=== PATIENT | female | born 1990 | race Two or more races ===

== ENCOUNTER 2019-04-04 21:39 | Emergency (ER) | payer OTHER ==
[~2019-04-04] VITALS: Ht 162.6 cm; Wt 52.2 kg
== END 2019-04-05 01:42 | disposition home or self-care (01) ==
LOC: ER 21:39
DX: R00.2 Palpitations (principal); F06.4 Anxiety disorder due to known physiological condition

== ENCOUNTER 2024-05-14 09:44 | Outpatient (CLI) | payer OTHER ==
[2024-05-14 10:27] LABS: HEMATOCRIT 37.1 % (36.0-45.00); HEMOGLOBIN 12.6 g/dL (12.0-15.00); MEAN CELL VOLUME 89.4 fL (80.00-100.00); MEAN CORPUSCULAR HEMOGLOBIN 30.5 pg (27.00-32.0); MEAN CORPUSCULAR HGB CONC 34.1 g/dl (32.0-36.0); PLATELET COUNT 280 K/uL (150-450); RED BLOOD COUNT 4.15 M/uL (4.00-6.00); RED CELL DISTRIBUTION WIDTH 12.2 % (11.5-14.5)
[2024-05-14 10:51] LABS: URINE APPEARANCE Clear; URINE BILIRRUBIN Negative (NEGATIVE); URINE BLOOD Negative; URINE COLOR Yellow; URINE GLUCOSE Negative (NEGATIVE); URINE KETONE 15 (NEGATIVE); URINE LEUKOCYTE Moderate; URINE NITRATE Negative; URINE PROTEIN Negative (NEGATIVE)
[2024-05-14 10:54] LABS: URINE BACTERIA 7160.3 uL (0.0-1933); URINE RBC 6.4 uL (0.0-20.8); URINE WBC 447.8 uL (0.0-23.2)
[2024-05-14 10:57] LABS: INR 0.97; PARTIAL THROMBOPLASTIN TIME 26.5 SECONDS (22.0-34.0); PROTHROMBIN TIME 10.6 SECONDS (9.0-11.5)
[2024-05-14 11:03] LABS: URINE CAST 0.15 uL (0.0-1.40)
[2024-05-14 11:33] LABS: ALBUMIN 3.6 gm/dL (3.4-5.0); BILIRUBIN TOTAL 0.42 mg/dL (0.3-1.2); CALCIUM 9.3 mg/dL (8.5-10.1); CREATININE SERUM 0.46 mg/dL (0.55-1.02); GFR 155.5; GLOBULINA 3.4 G/DL (2.4-3.5); POTASSIUM 4.04 mEq/L (3.5-5.1)
== END 2024-05-14 23:00 | disposition home or self-care (01) ==
LOC: LAB 09:44
PROVIDERS: ATTEND Obstetrics & Gynecology Gynecology
DX: D50.8 Other iron deficiency anemias (principal); R73.03 Prediabetes; D68.8 Other specified coagulation defects; N39.0 Urinary tract infection, site not specified; Z01.812 Encounter for preprocedural laboratory examination; Z01.818 Encounter for other preprocedural examination; I10 Essential (primary) hypertension; Z01.810 Encounter for preprocedural cardiovascular examination; R07.89 Other chest pain

== ENCOUNTER 2024-06-02 05:40 | Day surgery (SDC) | payer OTHER ==
[~2024-06-02 05:40] MED LIST: GENTLE LAXATIVE5 M1 PO
[2024-06-02] MEDS ORDERED: LIDOCAINE HCL 1% 20ML VIAL IJ ONE (10:51)
[2024-06-02] MEDS ORDERED: CEFAZOLIN SODIUM 1,000 MG VIAL ONE (10:51)
[2024-06-02] MEDS ORDERED: LIDOCAINE HCL 1%/EPINEPHRINE 20ML VIAL IJ ONE (11:45)
[2024-06-02] MEDS ORDERED: CEFAZOLIN SODIUM 1,000 MG VIAL IV ONE (11:45)
[2024-06-02] MEDS ORDERED: CEPHALEXIN250 M1 PO (12:45)
== END 2024-06-02 14:05 | disposition home or self-care (01) ==
LOC: CIR.AMB 05:40
PROVIDERS: ATTEND Obstetrics & Gynecology Gynecology
DX: N39.41 Urge incontinence (principal); R39.14 Feeling of incomplete bladder emptying
CPT/HCPCS: 64581; 64590; 95972; C1767; C1778